=== PATIENT | female | born 1945 | race Caucasian/White ===

== ENCOUNTER 2016-10-15 18:45 | Emergency (ER) | payer MEDICARE ==
[2016-10-15 19:12] VITALS: TEMP 97.8
[2016-10-15] MEDS ORDERED: LIDOCAINE 1% 10 ML VIAL INJ ONE (19:27)
[2016-10-15] MEDS ORDERED: NEOMYCIN-BACITRACIN-POLYMYXIN 0.9 GM UD TOP ONE (20:17)
--- NOTE | 2016-10-15 20:22 | ED.PDOC ---
History of Present Illness - General Chief Complaint: Laceration Stated Complaint: laceration Time Seen by Provider: 10/15/16 19:17 Source: patient Exam Limitations: no limitations - History of Present Illness Initial Comments: Patient presents with a laceration on the right foot. She [place] The wound has stopped bleeding and she says that it really doesn't hurt that much. No previous trauma to the area. Timing/Duration: 1-3 hours Severity: moderate Improving Factors: nothing Worsening Factors: nothing Associated Symptoms: denies symptoms Allergies/Adverse Reactions: Allergies NO KNOWN ALLERGY Allergy (Verified 10/15/16 19:12) Review of Systems - Review of Systems Constitutional: States: no symptoms reported EENTM: States: no symptoms reported Respiratory: States: no symptoms reported Cardiology: States: no symptoms reported Gastrointestinal/Abdominal: States: no symptoms reported Genitourinary: States: no symptoms reported Musculoskeletal: States: no symptoms reported Skin: States: see HPI Neurological: States: no symptoms reported Endocrine: States: no symptoms reported Hematologic/Lymphatic: States: no symptoms reported Past Medical History (General) - Patient Medical History Surgical History: Hysterectomy, other - Vaccination History Hx Tetanus, Diphtheria Vaccination: No - Social History Hx Tobacco Use: No Hx Alcohol Use: No Hx Substance Use: No Hx Substance Use Treatment: No Hx Depression: No - Activities of Daily Living Hospice Agency (if applicable):: None - Female History Patient is a Female of Child Bearing Age (10 -59 yrs old): No Patient : No Family Medical History - Family History Mother Family History: Unknown Physical Exam - Physical Exam General Appearance: Alert Respiratory: lungs clear Cardiovascular/Chest: normal peripheral pulses, regular rate, rhythm Peripheral Pulses: dorsalis pedis,right: 2+, dorsalis pedis,left: 2+, posterior tibialis,right: 2+, posterior tibialis,left: 2+ Gastrointestinal/Abdominal: normal bowel sounds, non tender, soft Extremity: other - 5/5 strenght to flexion/extesion of all of the right toes. 5/ 5 strength to dorsiflexion/plantarflexion of the right foot. 5/5 strength to inversion/eversion of the right foot. Skin Exam: other - 7 cm jagged transverse laceration on the dorsilateral surface of the right foot. Hemostatic. 1.0 cm deep. Progress - Progress Progress: 10/15/16 20:23 Area was irrigated with 30 cc of sterile NS. 6 cc of lidocaine without epinephrine was used to gain excellent local anesthesia. 12 interrupted sutures with 4-0 proline was used to gain good wound edge approximation. Area was clean, dry, and hemostatic upon completion. Patient tolerated procedure well. Tetanus booster given. Departure - Departure Clinical Impression: Laceration Disposition: Discharge to Home or Self Care Condition: Good Departure Forms: ED Discharge - Pt. Copy, Patient Portal Self Enrollment Diet: resume usual diet Activity: increase activity as tolerated Additional Instructions: Apply topical antibiotic to the wound twice per day for the first three days. Keep wound clean. Follow up with your regular doctor in ten days for suture removal. Return to the E.R. for increasing pain, bleeding, pus, or fever.
[2016-10-15] MEDS ORDERED: TETANUS,DIPHTHERIA,PERTUSSIS 1 EA SYG IM ONE (20:25)
[2016-10-15 20:56] VITALS: BP 130/78; O2SAT 97
== END 2016-10-15 20:57 | disposition home or self-care (01) ==
LOC: ER 18:45
DX: S91.311A Laceration without foreign body, right foot, initial encounter (principal); Z23 Encounter for immunization; W45.8XXA Other foreign body or object entering through skin, initial encounter; Y92.828 Other wilderness area as the place of occurrence of the external cause